=== PATIENT | female | born 1955 | race Caucasian/White ===

== ENCOUNTER 2024-09-24 09:29 | Emergency (ER) | payer OTHER ==
[~2024-09-24] VITALS: Ht 160 cm; Wt 89.9 kg
--- NOTE | 2024-09-24 11:08 | ED.PDOC ---
History of Present Illness HPI Comments 69-year-old female presents with a chief complaint of ruptured varicose vein x onset this morning. Patient states that she was shaving and gave herself an accidental puncture wound. Patient has a 1mm puncture wound to the left anterior tibial shaft of her left leg. Bleeding is not controlled at this time. Wont stop bleeding. Patient denies use of blood thinners. 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 Hx Family History Family History: Reviewed,noncontributory to illness Social History Smoker: Non-Smoker Alcohol: Denies ETOH Use Drugs: Denies Drug Use Lives In: Home All Other Systems: Reviewed and Negative ( PER HPI) Physical Exam General Appearance: No Apparent Distress, Normal HEENT: Normal ENT Inspection, Pharynx Normal, TMs Normal Neck: Full Range of Motion, Non-Tender, Normal, Normal Inspection Respiratory: Chest Non-Tender, Lungs Clear, No Accessory Muscle Use, No Respiratory Distress, Normal Breath Sounds Cardiovascular: No Edema, No JVD, No Murmur, No Gallop, Normal Peripheral Pulses, Regular Rate/Rhythm Breast Exam: Deferred Gastrointestinal: No Organomegaly, Non Tender, No Pulsatile Mass, Normal Bowel Sounds, Soft Genitalia: Deferred Pelvic: Deferred Rectal: Deferred Extremities: No calf tenderness, Normal capillary refill, Normal inspection, Normal range of motion, Non-tender, No pedal edema Musculoskeletal : Location: Left Extremity Location: Tibia (1mm PUNCTURE WOUND TO VARICOSE VEIN ON THE ANTERIOR TIBIAL SHAFT) Apperance: Normal Neurologic: Alert, gold blower II-XII nml as Tested, No Motor Deficits, Normal Affect, Normal Mood, No Sensory Deficits Cerebellar Function: Normal Reflexes: Normal Skin: Dry, Normal Color, Warm Lymphatic: No Adenopathy Was a procedure done? Was a procedure done?: No Differential Dx Considerations may include: ruptured venous varicosities, dvt, pad X-Ray, Labs, Meds, VS Vital Signs Date Time Temp Pulse Resp B/P (MAP) Pulse Ox O2 Delivery O2 Flow Rate FiO2 09/24/24 17:23 98.7 87 16 142/87 (105) 97 98.7 09/24/24 15:16 98.2 98 16 147/84 (105) 97 98.2 09/24/24 15:16 98 18 98 Room Air 09/24/24 09:34 98.1 108 20 155/79 (104) 95 98.1 Lab Test 09/24/24 13:18 Range/Units White Blood Count 7.2 4.4-10.8 10^3/uL Red Blood Count 4.26 4.0-5.20 10^6/uL Hemoglobin 12.8 12.2-16.2 g/dL Hematocrit 37.4 36.0-46.0 % Mean Corpuscular Volume 87.8 80.0-100.0 fL Mean Corpuscular Hemoglobin 29.9 28.0-32.0 pg Mean Corpuscular Hemoglobin Concent 34.1 32.0-36.0 g/dL Red Cell Distribution Width 13.2 11.8-14.3 % Platelet Count 226 140-450 10^3/uL Mean Platelet Volume 8.3 6.9-10.8 fL Neutrophils (%) (Auto) 68.4 37.0-80.0 % Lymphocytes (%) (Auto) 20.3 10.0-50.0 % Monocytes (%) (Auto) 8.9 0.0-12.0 % Eosinophils (%) (Auto) 1.8 0.0-7.0 % Basophils (%) (Auto) 0.6 0.0-2.0 % Neutrophils # (Auto) 4.9 1.6-8.6 10 ^3/uL Lymphocytes # (Auto) 1.5 0.4-5.4 10 ^3/uL Monocytes # (Auto) 0.6 0-1.3 10 ^3/uL Eosinophils # (Auto) 0.1 0-0.8 10 ^3/uL Basophils # (Auto) 0 0-0.2 10 ^3/uL Nucleated Red Blood Cells 0.0 % Prothrombin Time 10.8 9.3-11.8 sec Prothrombin Time INR 1.02 0.9-1.15 Sodium Level 144 136-145 mmol/L Potassium Level 3.7 3.5-5.1 mmol/L Chloride Level 107 98-107 mmol/L Carbon Dioxide Level 30 20-31 mmol/L Anion Gap 7 5-15 Blood Urea Nitrogen 12 9-23 mg/dL Creatinine 0.88 0.550-1.02 mg/dL Glomerular Filtration Rate Calc 70 >90 mL/min BUN/Creatinine Ratio 13.6 10.0-20.0 Serum Glucose 94 74-106 mg/dL Calcium Level 10.4 8.7-10.4 mg/dL Current Medications Medications (Trade) Dose Ordered Sig/Jourdan Route Start Time Stop Time Status Last Admin Acetaminophen/ Hydrocodone Bitart ([facility] 10/325MG Tab) 1 tab ONCE ONCE PO 09/24/24 15:30 09/24/24 15:31 DC 09/24/24 15:24 PATIENT: PAIGE PAULSON LACCT: [id number]: [id number] : 1955 LOC: ER ROOM / BED: / AGE / SEX: 69 / F ADM STATUS: REG ER SERVICE 110 ORDERING PHYSICIAN: FAITH OBRIEN DIRECTOR OF RADIOLOGY PROCEDURE(s): LLDVT - LT Lower DVT REASON: pain ORDER NUMBER(s): [id number], ACCESSION NUMBER(s): [id number] Left lower extremity venous duplex Clinical History: pain Comparison: None Technique: Duplex Doppler evaluation of the deep venous system of the left lower extremity from the common femoral vein to the popliteal vein including color Doppler and spectral/pulsed waveform analysis was performed. Findings: The common femoral vein demonstrates appropriate compressibility and waveform variability. There is compressibility/patency of the great saphenous vein at the proximal thigh. The femoral vein demonstrates appropriate compressibility and waveform variability. The deep femoral vein demonstrates appropriate compressibility and waveform variability. The popliteal vein demonstrates appropriate compressibility and waveform variability. There is normal compressibility at the tibioperoneal trunk. Impression: No left femoropopliteal venous thrombosis. PATIENT: KHURRAMPAIGE CHADWICK LACCT: [id number]: [id number] : 1955 LOC: ER ROOM / BED: / AGE / SEX: 69 / F ADM STATUS: REG ER SERVICE 1105 ORDERING PHYSICIAN: FAITH OBRIEN NP PROCEDURE(s): LLEAD - Lt Low Ext Art Duplex REASON: R/o PAD ORDER NUMBER(s): [id number], ACCESSION NUMBER(s): [id number] Left Lower Extremity Arterial Duplex Clinical History: Peripheral arterial disease Comparison: None Technique: Duplex Doppler evaluation including color Doppler and spectral/pulsed waveform analysis of the lower extremity arteries was performed. Findings: LEFT: Peak systolic velocities are as follows: NURSERY ATTENDANT 181 cm/s Deep femoral 66 cm/s SFA proximal 143 cm/s SFA mid-portion 114 cm/s SFA distal 86 cm/s Popliteal 101 cm/s Posterior tibial 93 cm/s Anterior tibial 63 cm/s Peroneal nv cm/s Dorsalis pedis 63 cm/s The waveforms are triphasic with diastolic flow. IMPRESSION: 20-49% stenosis of the left common femoral artery based on peak systolic velocity criteria. REFERENCE VALUES, [facility] vascular Imaging Lab Criteria: Peak systolic velocity ranges (in cm/sec) are as follows: <150 cm/s - <20 % stenosis 150-200 cm/s - 20-49% stenosis 200-300 cm/s - 50-75% stenosis >300 cm/s -> 75% stenosis ATED BY: JESUS SPIVEY MD DICTATED DATE/TIME: 09/24/24 120 SIGNED BY: JESUS SPIVEY MD SIGNED DATE/TIME: 09/24/24 1209 CC: X-Ray, Labs, Meds, VS Comment 69-year-old female presents with a chief complaint of ruptured varicose vein x onset this morning. Patient arrives alert and oriented, ABC's intact, afebrile, vital signs stable, saturating well in room air Lidocaine with 1% epi and applied a pressure dressing for 1 hour with no improvement. Ordered ultrasound to rule out DVT and peripheral arterial disease of the affected extremity. Results reviewed On re-evaluation patient had no improvement. Bleeding remains uncontrolled at this time. Therefore patient will require admission hemostasis is obtained. May benefit from surgical consultation. Ordered TXA. We will apply topically and we will rewrap the affected extremity. The patient's workup reveals that the patient needs further evaluation and/or treatment for the above medical conditions. Patient verbalized understanding of the above and is awaiting further evaluation by the admitting service. Consulted w/ Dr. Briseno who consulted with surgeon who stated patient is stable for discharge Time of 1ST Reevaluation: 11:27 Reevaluation 1ST: Unchanged Time of 2ND Reevaluation: 12:33 Reevaluation 2ND: Worsened Time of 3RD Reevaluation: 17:09 Patient Education/Counseling: Diagnosis, Treatment, Prognosis Family Education/Counseling: No Family Present SEPSIS Sepsis Screen Date sepsis recognized/suspect: Sep 24, 2024 Time Sepsis recognized/suspect: 933 Recent Procedure: No On Antibiotic Therapy: No Respiratory Rate >20: No Heart Rate >90: Yes (108) Temp<36 C (96.8 F) or >38.3 C: No SBP <90 or MAP <65 mmHG: No New Acute Mental Status Change: No Is the patient on CPAP, BIPAP,: No Physician Orders Lt Lower Dvt (09/24/24 11:05) Lt Low Ext Art Duplex (09/24/24 11:05) Vital Signs Date Time Temp Pulse Resp B/P (MAP) Pulse Ox O2 Delivery O2 Flow Rate FiO2 09/24/24 17:23 98.7 87 16 142/87 (105) 97 98.7 09/24/24 15:16 98.2 98 16 147/84 (105) 97 98.2 09/24/24 15:16 98 18 98 Room Air 09/24/24 09:34 98.1 108 20 155/79 (104) 95 98.1 Laboratory Tests Test 09/24/24 13:18 White Blood Count 7.2 10^3/uL (4.4-10.8) Departure 1 Departure Time of Disposition: 17:10 Impression: Primary Impression: Ruptured varicose vein Disposition: 01 HOME / SELF CARE / HOMELESS Condition: Fair Critical Care Note Critical Care Time?: No Stability Stability form required: No Heart Score Heart Score: Heart Score Response (Comments) Value History N/A 0 EKG N/A 0 Age N/A 0 Risk Factors N/A 0 Troponin N/A 0 Total 0 I personally scribed for FAITH OBRIEN NP ([email or web address]) on 09/24/24 at 11:08. Electronically submitted by Kal Crowder ([email or web address]). FAITH OBRIEN NP Sep 24, 2024 11:08
--- NOTE | 2024-09-24 12:01 | DVH ---
Left lower extremity venous duplex Clinical History: pain Comparison: None Technique: Duplex Doppler evaluation of the deep venous system of the left lower extremity from the common femor al vein to the popliteal vein including color Doppler and spectral/pulsed waveform analysis was perfo rmed. Findings: The common femoral vein demonstrates appropriate compressibility and waveform variability. There is compressibility/patency of the great saphenous vein at the proximal thigh. The femoral vein demonstrates appropriate compressibility and waveform variability. The deep femoral vein demonstrates appropriate compressibility and waveform variability. The popliteal vein demonstrates appropriate compressibility and waveform variability. There is normal compressibility at the tibioperoneal trunk. Impression: No left femoropopliteal venous thrombosis.
--- NOTE | 2024-09-24 12:12 | DVH ---
Left Lower Extremity Arterial Duplex Clinical History: Peripheral arterial disease Comparison: None Technique: Duplex Doppler evaluation including color Doppler and spectral/pulsed waveform analysis of the lower extremity arteries was performed. Findings: LEFT: Peak systolic velocities are as follows: WIG DRESSER 181 cm/s Deep femoral 66 cm/s SFA proximal 143 cm/s SFA mid-portion 114 cm/s SFA distal 86 cm/s Popliteal 101 cm/s Posterior tibial 93 cm/s Anterior tibial 63 cm/s Peroneal nv cm/s Dorsalis pedis 63 cm/s The waveforms are triphasic with diastolic flow. IMPRESSION: 20-49% stenosis of the left common femoral artery based on peak systolic velocity criteria. REFERENCE VALUES, [facility]) vascular Imaging Lab Criteria: Peak systolic velocity rang es (in cm/sec) are as follows: <150 cm/s - <20 % stenosis 150-200 cm/s - 20-49% stenosis 200-300 cm/s - 50-75% stenosis >300 cm/s -> 75% stenosis
[2024-09-24] MEDS: TRANEXAMIC ACID 1,000 MG in SODIUM CHL 0.9% 100 ML IV ONE (13:03)
[2024-09-24 13:34] LABS: Basophils # (auto) 0 10 ^3/uL (0-0.2); Basophils % (auto) 0.6 % (0.0-2.0); Eosinophils # (auto) 0.1 10 ^3/uL (0-0.8); Eosinophils % (auto) 1.8 % (0.0-7.0); Hematocrit 37.4 % (36.0-46.0); Hemoglobin 12.8 g/dL (12.2-16.2); Lymphocytes # (auto) 1.5 10 ^3/uL (0.4-5.4); Lymphocytes % (auto) 20.3 % (10.0-50.0); Mean Corpuscular Hemoglobin 29.9 pg (28.0-32.0); Mean Corpuscular Hgb Conc. 34.1 g/dL (32.0-36.0); Mean Corpuscular Volume 87.8 fL (80.0-100.0); Monocytes # (auto) 0.6 10 ^3/uL (0-1.3); Monocytes % (auto) 8.9 % (0.0-12.0); Neutrophils # (auto) 4.9 10 ^3/uL (1.6-8.6); Neutrophils % (auto) 68.4 % (37.0-80.0); Platelet Count (auto) 226 10^3/uL (140-450); Red Blood Cells 4.26 10^6/uL (4.0-5.20); Red Cell Distribution Width 13.2 % (11.8-14.3); White Blood Cell 7.2 10^3/uL (4.4-10.8)
[2024-09-24 13:43] LABS: Potassium 3.7 mmol/L (3.5-5.1); Sodium 144 mmol/L (136-145)
[2024-09-24 13:44] LABS: Anion Gap 7 (5-15); Carbon Dioxide 30 mmol/L (20-31)
[2024-09-24 13:48] LABS: INR 1.02 (0.9-1.15); Prothrombin Time 10.8 sec (9.3-11.8)
[2024-09-24 13:49] LABS: BUN/Creatinine Ratio 13.6 (10.0-20.0); Blood Urea Nitrogen 12 mg/dL (9-23); Glucose 94 mg/dL (74-106)
[2024-09-24 13:52] LABS: Calcium 10.4 mg/dL (8.7-10.4); Chloride 107 mmol/L (98-107)
[2024-09-24] MEDS: HYDROcodone-ACET 10/325MG TAB PO ONE (15:24)
[2024-09-24 17:23] VITALS: BP 142/87; PULSE 87; RESP 16; TEMP 98.7; O2SAT 97
--- NOTE | 2024-09-24 17:23 | DVHINCON2 ---
Date Seen: Sep 24, 2024 Referring Physician ER physician. Reason for Consultation Left lower extremity varicose has been/active bleeding from puncture wound. History of Present Illness 69-year-old female with no significant past medical history accept previous history of abdominal hernia surgery presented to the hospital with a left cough wound. Patient has a known varicose vein she was shaving her leg on the left lower extremity eventually gave are recurrent. Patient came with oozing from the varicose veins. Initially plan was to admit and then call vascular surgeon. Case discussed in detail with Dr. Ashby who recommended stretching of the wound and send the patient home with close follow up as an outpatient with the [facility] with a in one week. Patient agrees to current plan of care. Past Surgical History Abdominal hernia surgeries. Allergies: Coded Allergies: Amoxicillin (Verified Allergy, Unknown, 09/24/24) Review of Systems Twelve review of system were negative except mentioned above. 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 Labs/Diagnostic Data Labs Test 09/24/24 13:18 Range/Units White Blood Count 7.2 4.4-10.8 10^3/uL Red Blood Count 4.26 4.0-5.20 10^6/uL Hemoglobin 12.8 12.2-16.2 g/dL Hematocrit 37.4 36.0-46.0 % Mean Corpuscular Volume 87.8 80.0-100.0 fL Mean Corpuscular Hemoglobin 29.9 28.0-32.0 pg Mean Corpuscular Hemoglobin Concent 34.1 32.0-36.0 g/dL Red Cell Distribution Width 13.2 11.8-14.3 % Platelet Count 226 140-450 10^3/uL Mean Platelet Volume 8.3 6.9-10.8 fL Neutrophils (%) (Auto) 68.4 37.0-80.0 % Lymphocytes (%) (Auto) 20.3 10.0-50.0 % Monocytes (%) (Auto) 8.9 0.0-12.0 % Eosinophils (%) (Auto) 1.8 0.0-7.0 % Basophils (%) (Auto) 0.6 0.0-2.0 % Neutrophils # (Auto) 4.9 1.6-8.6 10 ^3/uL Lymphocytes # (Auto) 1.5 0.4-5.4 10 ^3/uL Monocytes # (Auto) 0.6 0-1.3 10 ^3/uL Eosinophils # (Auto) 0.1 0-0.8 10 ^3/uL Basophils # (Auto) 0 0-0.2 10 ^3/uL Nucleated Red Blood Cells 0.0 % Prothrombin Time 10.8 9.3-11.8 sec Prothrombin Time INR 1.02 0.9-1.15 Sodium Level 144 136-145 mmol/L Potassium Level 3.7 3.5-5.1 mmol/L Chloride Level 107 98-107 mmol/L Carbon Dioxide Level 30 20-31 mmol/L Anion Gap 7 5-15 Blood Urea Nitrogen 12 9-23 mg/dL Creatinine 0.88 0.550-1.02 mg/dL Glomerular Filtration Rate Calc 70 >90 mL/min BUN/Creatinine Ratio 13.6 10.0-20.0 Serum Glucose 94 74-106 mg/dL Calcium Level 10.4 8.7-10.4 mg/dL Assessment 69-year-old female with a no significant past medical history besides abdominal hernia surgery presented to the hospital with bleeding from the cough found to have 1. Active bleeding from the left cough wound 2. Ruptured varicose vein status post hemostatic spray with antiseptic dressing -patient can be safely discharged with close follow up as an outpatient with Dr. Ashby as I discussed the case with him. Patient understand verbalized understanding and agreeable to plan. Problems(with codes): (1) Ruptured varicose vein Plan discussed with: Patient, Other (ER provider Pavan.) Date of Service: Sep 24, 2024 Billing Provider: MICHELLE GUILLORY MD Common Visit Codes: NOT BILLABLE MICHELLE GUILLORY MD Sep 24, 2024 17:23
== END 2024-09-24 17:32 | disposition home or self-care (01) ==
LOC: ER 09:29
DX: S81.832A Puncture wound without foreign body, left lower leg, initial encounter (principal); I83.892 Varicose veins of left lower extremity with other complications; Z88.0 Allergy status to penicillin; X58.XXXA Exposure to other specified factors, initial encounter; Y93.89 Activity, other specified; Y92.89 Other specified places as the place of occurrence of the external cause; Y99.8 Other external cause status
CPT/HCPCS: 36415; 80048; 85025; 85610; 93926; 93971

== ENCOUNTER 2025-03-16 04:03 | Inpatient (IN) | payer OTHER ==
[~2025-03-16] VITALS: Ht 160 cm; Wt 91.0 kg
--- NOTE | 2025-03-16 04:36 | ED.PDOC ---
Musculoskeletal HPI Comments 69-year-old female who came to ER for bilateral leg swelling. Patient states about 3 months ago she had the procedure to repair leaking venous valves at her left lower leg. The past few weeks however noted swelling and pain on both lower legs again, more painful in the right leg Chief Complaint: Extremity Swelling Time Seen by MD: 04:36 Primary Care Provider: LUZ MARIA Reviewed Notes: Nurses Notes Allergies: Coded Allergies: Amoxicillin (Verified Allergy, Unknown, 09/24/24) Penicillins (Verified Allergy, Unknown, 03/16/25) Home Meds Active Scripts Elastic Bandages & Supports (Futuro Sheer Support Hose) Sheer Mis, UNITS XX DAILY, #10 Prov:RYAN BAEZ MD 03/16/25 Elastic Bandages & Supports (ANTI-EMBOLISM STOCKINGS 1) Jodi Med Mis, UNIT XX DAILY, #1 Prov:RYAN BAEZ MD 03/16/25 Information Source: Patient Mode of Arrival: Ambulatory Location: Bilateral Extremity Location: Leg Past Medical History PAST MEDICAL HISTORY: Denies Past Medical History (Other): Leaking venous valves Surgical History: Denies all surgeries 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 Family History Family History: Reviewed,noncontributory to illness Social History Smoker: Non-Smoker Alcohol: Denies ETOH Use Drugs: Denies Drug Use Lives In: Home Constitutional: denies: chills, diaphoresis, fatigue, fever, malaise, sweats, weakness, others EENTM: denies: blurred vision, double vision, ear bleeding, ear discharge, ear drainage, ear pain, ear ringing, eye pain, eye redness, hearing loss, mouth pain, mouth swelling, nasal discharge, nose bleeding, nose congestion, nose pain, photophobia, tearing, throat pain, throat swelling, voice changes, others Respiratory: denies: cough, hemoptysis, orthopnea, SOB at rest, shortness of breath, SOB with excertion, stridor, wheezing, others Cardiovascular: denies: chest pain, dizzy spells, diaphoresis, Dyspnea on exertion, edema, irregular heart beat, left arm pain, lightheadedness, palpitations, PND, syncope, others Gastrointestinal: denies: abdomen distended, abdominal pain, blood streaked bowels, constipated, diarrhea, dysphagia, difficulty swallowing, hematemesis, melena, nausea, poor appetite, poor fluid intake, rectal bleeding, rectal pain, vomiting, others Genitourinary: denies: abnormal vagina bleeding, burning, dyspareunia, dysuria, flank pain, frequency, hematuria, incontinence, pain, , vagina discharge, urgency, others Neurological: denies: dizziness, fainting, headache, left sided numbness, left sided weakness, numbness, paresthesia, pre-existing deficit, right sided numbness, right sided weakness, seizure, speech problems, tingling, tremors, weakness, others Musculoskeletal: reports: others (Bilateral lower extremity swelling); denies: back pain, gout, joint pain, joint swelling, muscle pain, muscle stiffness, neck pain Integumetry: denies: bruises, change in color, change in hair/nails, dryness, laceration, lesions, lumps, rash, wounds, others Allergic/Immunocompromised: denies: Difficulty Healing, Frequent Infections, Hives, Itching, others Hematologic/Lymphatic: denies: anemia, blood clots, easy bleeding, easy bruising, swollen glands, others Endocrine: denies: excessive hunger, excessive sweating, excessive thirst, excessive urination, flushing, intolerance to cold, intolerance to heat, unexplained weight gain, unexplained weight loss, others Psychiatric: denies: anxiety, bipolar disorder, depression, hopeless, panic disorder, schizophrenia, sleepless, suicidal, others Physical Exam General Appearance: No Apparent Distress, Normal HEENT: Normal ENT Inspection, Pharynx Normal, TMs Normal Neck: Full Range of Motion, Non-Tender, Normal, Normal Inspection Respiratory: Chest Non-Tender, Lungs Clear, No Accessory Muscle Use, No Respiratory Distress, Normal Breath Sounds Cardiovascular: No Edema, No JVD, No Murmur, No Gallop, Normal Peripheral Pulses, Regular Rate/Rhythm Breast Exam: Deferred Gastrointestinal: No Organomegaly, Non Tender, No Pulsatile Mass, Normal Bowel Sounds, Soft Genitalia: Deferred Pelvic: Deferred Rectal: Deferred Extremities: No calf tenderness, Normal capillary refill, Normal range of motion, Non-tender, Pedal edema Musculoskeletal : Apperance: Normal Neurologic: Alert, e commerce solution architect II-XII nml as Tested, No Motor Deficits, Normal Affect, Normal Mood, No Sensory Deficits Cerebellar Function: Normal Reflexes: Normal Skin: Dry, Normal Color, Warm Lymphatic: No Adenopathy Was a procedure done? Was a procedure done?: No Differential Diagnosis EXT Differential Diagnosis: Cellulitis, CHF, Deep Vein Thrombosis X-Ray, Labs, Meds, VS Vital Signs Date Time Temp Pulse Resp B/P (MAP) Pulse Ox O2 Delivery O2 Flow Rate FiO2 03/16/25 07:45 98.4 80 19 171/81 (111) 97 98.4 03/16/25 07:45 80 19 97 Room Air 03/16/25 04:57 98.7 80 18 136/68 (90) 95 98.7 03/16/25 04:06 98.3 79 16 126/91 95 98.3 Lab Test 03/16/25 04:37 Range/Units White Blood Count 5.7 4.4-10.8 10^3/uL Red Blood Count 4.20 4.0-5.20 10^6/uL Hemoglobin 13.1 12.2-16.2 g/dL Hematocrit 38.9 36.0-46.0 % Mean Corpuscular Volume 92.7 80.0-100.0 fL Mean Corpuscular Hemoglobin 31.1 28.0-32.0 pg Mean Corpuscular Hemoglobin Concent 33.6 32.0-36.0 g/dL Red Cell Distribution Width 13.9 11.8-14.3 % Platelet Count 261 140-450 10^3/uL Mean Platelet Volume 8.1 6.9-10.8 fL Neutrophils (%) (Auto) 54.8 37.0-80.0 % Lymphocytes (%) (Auto) 28.4 10.0-50.0 % Monocytes (%) (Auto) 11.5 0.0-12.0 % Eosinophils (%) (Auto) 3.9 0.0-7.0 % Basophils (%) (Auto) 1.4 0.0-2.0 % Neutrophils # (Auto) 3.1 1.6-8.6 10 ^3/uL Lymphocytes # (Auto) 1.6 0.4-5.4 10 ^3/uL Monocytes # (Auto) 0.7 0-1.3 10 ^3/uL Eosinophils # (Auto) 0.2 0-0.8 10 ^3/uL Basophils # (Auto) 0.1 0-0.2 10 ^3/uL Nucleated Red Blood Cells 0.0 % Sodium Level 143 136-145 mmol/L Potassium Level 3.8 3.5-5.1 mmol/L Chloride Level 107 98-107 mmol/L Carbon Dioxide Level 26 20-31 mmol/L Anion Gap 10 5-15 Blood Urea Nitrogen 12 9-23 mg/dL Creatinine 0.73 0.550-1.02 mg/dL Glomerular Filtration Rate Calc 88 >90 mL/min BUN/Creatinine Ratio 16.4 10.0-20.0 Serum Glucose 95 74-106 mg/dL Calcium Level 9.7 8.7-10.4 mg/dL Total Bilirubin 1.1 H 0.2-1.0 mg/dL Aspartate Amino Transferase (AST) 24 13-40 U/L Alanine Aminotransferase (ALT) 23 7-40 U/L Alkaline Phosphatase 100 46-116 U/L Troponin I High Sensitivity < 3 L </=34 ng/L B-Type Natriuretic Peptide 105.61 0-100 pg/mL Total Protein 6.6 5.7-8.2 g/dL Albumin 4.2 3.2-4.8 g/dL Time of 1ST Reevaluation: 04:30 Reevaluation 1ST: Unchanged Patient Education/Counseling: Diagnosis, Treatment Family Education/Counseling: Diagnosis, Treatment Departure 1 Departure Time of Disposition: 08:24 (Patient with a worsening lower extremity edema admitted shortness of breath. Patient's chest x-ray is pulmonary vascular congestion. We will admit patient for suspected heart failure) Impression: Primary Impression: Suspected congestive heart failure Additional Impressions: Shortness of breath Lower extremity edema Disposition: 09 ADMITTED INPATIENT Admit to: Tele Condition: Guarded e-Prescriptions Elastic Bandages & Supports (Futuro Sheer Support Hose) Sheer Mis UNITS XX DAILY, #10 Prov: RYAN BAEZ MD 03/16/25 Elastic Bandages & Supports (ANTI-EMBOLISM STOCKINGS 1) Jodi Med Mis UNIT XX DAILY, #1 Prov: RYAN BAEZ MD 03/16/25 Critical Care Note Critical Care Time?: No Stability Stability form required: No Heart Score Heart Score: Heart Score Response (Comments) Value History N/A 0 EKG N/A 0 Age N/A 0 Risk Factors N/A 0 Troponin N/A 0 Total 0 I personally scribed for RYAN BAEZ MD ([email or web address]) on 03/16/25 at 04:36. Electronically submitted by David Berry ([facility]). RYAN BAEZ MD Mar 16, 2025 04:36 SEEMA DIANA MD Mar 16, 2025 08:24
[2025-03-16 04:49] LABS: Hematocrit 38.9 % (36.0-46.0); Hemoglobin 13.1 g/dL (12.2-16.2); Mean Corpuscular Hemoglobin 31.1 pg (28.0-32.0); Mean Corpuscular Volume 92.7 fL (80.0-100.0); Nucleated Red Blood Cells % 0.0 %
[2025-03-16 05:01] LABS: Alanine Aminotransferase 23 U/L (7-40); Albumin 4.2 g/dL (3.2-4.8); Alkaline Phosphatase 100 U/L (46-116); Anion Gap 10 (5-15); BUN/Creatinine Ratio 16.4 (10.0-20.0); Blood Urea Nitrogen 12 mg/dL (9-23); Calcium 9.7 mg/dL (8.7-10.4); Carbon Dioxide 26 mmol/L (20-31); Glucose 95 mg/dL (74-106); Potassium 3.8 mmol/L (3.5-5.1); Sodium 143 mmol/L (136-145); Total Protein 6.6 g/dL (5.7-8.2)
[2025-03-16 05:02] LABS: Bilirubin, Total 1.1 mg/dL (0.2-1.0)
[2025-03-16 05:03] LABS: Chloride 107 mmol/L (98-107)
[2025-03-16] MEDS ORDERED: ELAS-110 XX (05:21)
[2025-03-16] MEDS ORDERED: [UNRECOGNIZED DRUG - CODE] XX (05:21)
--- NOTE | 2025-03-16 08:27 | DVH ---
CLINICAL HISTORY: Bilateral lower extremity pain and swelling. COMPARISON: VAS VENOUS REFLUX INSUFFICIENCY BILAT on DOS: 10/16/24, US LT LOW EXT ART DUPLEX on DOS: 09/24/24, US LT LOWER DVT on DOS: 09/24/24 TECHNIQUE: Bilateral lower extremity venous duplex exam was performed. Grayscale, color flow, and spectral waveform analysis was performed. The deep veins of the lower extremity were evaluated for compression, phasic flow, and augmentation. Color flow and spectral waveform analysis were performed. FINDINGS: This examination demonstrates normal compression, augmentation, and phasic flow of both lower extremities. No evidence for thrombus within the common femoral, femoral, and popliteal veins. The calf veins were not evaluated. IMPRESSION: There is no evidence for DVT in either lower extremity from the level of the common femoral through the popliteal veins.
--- NOTE | 2025-03-16 08:38 | DVH ---
CHEST RADIOGRAPH Indication: sob Technique: Single frontal view of the chest was obtained COMPARISON: None FINDINGS: Lines and Tubes: None Lungs: Increased interstitial prominence. This may represent pulmonary vascular congestion and/or viral pneumonia. Pleura: No effusion. No pneumothorax. Cardiomediastinal contours: Unremarkable Bones: Unremarkable IMPRESSION: Increased interstitial prominence. This may represent pulmonary vascular congestion and/or viral pneumonia.
[2025-03-16] MEDS: FUROSEMIDE 40 MG/4 ML VIAL IV ONE (08:57)
[2025-03-16] MEDS ORDERED: NITROGLYCERIN 0.4 MG SL TAB SL PRN (11:00)
[2025-03-16] MEDS ORDERED: MORPHINE SULFATE 4 MG/ML SYR/VIAL IV PRN (11:00)
[2025-03-16] MEDS ORDERED: HYDROcodone-ACET 5/325MG TAB PO PRN (11:00)
[2025-03-16] MEDS ORDERED: ONDANSETRON HCL 4 MG/2 ML VIAL IV PRN (11:00)
[2025-03-16] MEDS: LABETALOL HCL 20 MG/4 ML VL IV ONE (11:03)
--- NOTE | 2025-03-16 13:59 | DVHHP2 ---
History of Present Illness Reason for Visit: Bilateral lower extremity swelling and discomfort History of Present Illness 69-year-old female who came to ER for bilateral leg swelling. Patient states a bout 3 months ago she had the procedure to repair leaking venous valves at her left lower leg. The past few weeks however noted swelling and pain on both lower legs again, more painful in the right leg. Pain appears to be get worse with walking. Cardiovascular: HTN Past Medical History Lower extremity venous insufficiency, hypertension Past Surgical History: None Family History: Hypertension Smoke: No ALCOHOL: rare Lives: with Family Review of Systems Review of Systems No fevers chills or sweats. No headache dizziness or lightheaded. No chest pain or shortness for breath. Other review of systems reviewed normal. Allergies: Coded Allergies: Amoxicillin (Verified Allergy, Unknown, 09/24/24) Penicillins (Verified Allergy, Unknown, 03/16/25) Medications Current Medications Medications Dose Ordered Sig/Jourdan Route Start Time Stop Time Status Last Admin Dose Admin Nitroglycerin 0.4 mg Q5MINP PRN SL 03/16/25 11:00 Morphine Sulfate 2 mg Q30M PRN IV 03/16/25 11:00 Furosemide 40 mg BIDD IV 03/16/25 18:00 Acetaminophen/ Hydrocodone Bitart 1 tab Q4HPRN PRN PO 03/16/25 11:00 Ondansetron HCl 4 mg Q4HPRN PRN IV 03/16/25 11:00 Enoxaparin Sodium 40 mg DAILY SC 03/17/25 10:00 Exam Vital Signs Vital Signs Date Time Temp Pulse Resp B/P (MAP) Pulse Ox O2 Delivery O2 Flow Rate FiO2 03/16/25 11:45 79 128/83 03/16/25 11:28 98.2 18 98 98.2 03/16/25 07:45 Room Air Exam Elderly female comfortable alert awake oriented x3. HEENT neck supple no JVD. Heart regular rate and rhythm S1-S2. Lungs fair air movement without rales wheezes. Abdomen soft nontender positive bowel sounds. Extremities positive edema in the lower extremities. Chronic venous stasis with a dermatitis changes noted. Positive distal pedal pulses noted. Labs/Xrays Labs Test 03/16/25 04:37 Range/Units White Blood Count 5.7 4.4-10.8 10^3/uL Red Blood Count 4.20 4.0-5.20 10^6/uL Hemoglobin 13.1 12.2-16.2 g/dL Hematocrit 38.9 36.0-46.0 % Mean Corpuscular Volume 92.7 80.0-100.0 fL Mean Corpuscular Hemoglobin 31.1 28.0-32.0 pg Mean Corpuscular Hemoglobin Concent 33.6 32.0-36.0 g/dL Red Cell Distribution Width 13.9 11.8-14.3 % Platelet Count 261 140-450 10^3/uL Mean Platelet Volume 8.1 6.9-10.8 fL Neutrophils (%) (Auto) 54.8 37.0-80.0 % Lymphocytes (%) (Auto) 28.4 10.0-50.0 % Monocytes (%) (Auto) 11.5 0.0-12.0 % Eosinophils (%) (Auto) 3.9 0.0-7.0 % Basophils (%) (Auto) 1.4 0.0-2.0 % Neutrophils # (Auto) 3.1 1.6-8.6 10 ^3/uL Lymphocytes # (Auto) 1.6 0.4-5.4 10 ^3/uL Monocytes # (Auto) 0.7 0-1.3 10 ^3/uL Eosinophils # (Auto) 0.2 0-0.8 10 ^3/uL Basophils # (Auto) 0.1 0-0.2 10 ^3/uL Nucleated Red Blood Cells 0.0 % Sodium Level 143 136-145 mmol/L Potassium Level 3.8 3.5-5.1 mmol/L Chloride Level 107 98-107 mmol/L Carbon Dioxide Level 26 20-31 mmol/L Anion Gap 10 5-15 Blood Urea Nitrogen 12 9-23 mg/dL Creatinine 0.73 0.550-1.02 mg/dL Glomerular Filtration Rate Calc 88 >90 mL/min BUN/Creatinine Ratio 16.4 10.0-20.0 Serum Glucose 95 74-106 mg/dL Calcium Level 9.7 8.7-10.4 mg/dL Total Bilirubin 1.1 H 0.2-1.0 mg/dL Aspartate Amino Transferase (AST) 24 13-40 U/L Alanine Aminotransferase (ALT) 23 7-40 U/L Alkaline Phosphatase 100 46-116 U/L Troponin I High Sensitivity < 3 L </=34 ng/L B-Type Natriuretic Peptide 105.61 0-100 pg/mL Total Protein 6.6 5.7-8.2 g/dL Albumin 4.2 3.2-4.8 g/dL SEPSIS Sepsis Screen Date sepsis recognized/suspect: Mar 16, 2025 Time Sepsis recognized/suspect: 445 Recent Procedure: Yes On Antibiotic Therapy: No Respiratory Rate >20: No Heart Rate >90: No Temp<36 C (96.8 F) or >38.3 C: No SBP <90 or MAP <65 mmHG: No New Acute Mental Status Change: No Is the patient on CPAP, BIPAP,: No Physician Orders Chest Portable (03/16/25 07:11) Admit (03/16/25 10:49) Cardiac Diet-2gna,Lofat,Lochol (03/16/25 Lunch) Echo 2d Mode Cardiac Dop (03/16/25 10:49) Nitroglycerin Sublingual (Ntrostat Subli (03/16/25 11:00) Stat Ekg For Chest Pain (03/16/25 10:49) Notify Md Of Changes From Base (03/16/25 10:49) Clinical Psychology Teacher For 24 Hours (03/16/25 10:49) Emergency Dysrhythmia Protocol (03/16/25 10:49) Rhythm Strips Once Every Shift (03/16/25 10:49) Oxygen By Nasal Cannula (03/16/25 10:49) Bilat Low Ext Art Duplex (03/16/25 10:49) Furosemide Injection (Lasix Injection) (03/16/25 18:00) Hydrocodone-Acet 5/325mg Tab ([place] 5/32 (03/16/25 11:00) Ondansetron Hcl (Zofran) (03/16/25 11:00) Enoxaparin Sodium (Lovenox) (03/17/25 10:00) Basic Metabolic Panel (03/17/25 04:00) Marino Stockings (03/16/25 10:49) Morphine Sulfate Injection (03/16/25 11:00) Aspirin Enteric Coated Tablet (Ecotrin E (03/17/25 10:00) Aspirin Enteric Coated Tablet (Ecotrin E (03/16/25 14:00) Vital Signs Date Time Temp Pulse Resp B/P (MAP) Pulse Ox O2 Delivery O2 Flow Rate FiO2 03/16/25 11:45 79 128/83 03/16/25 11:28 98.2 79 18 128/73 (91) 98 98.2 03/16/25 11:03 78 158/101 03/16/25 10:48 97.9 78 18 156/101 (119) 97 97.9 03/16/25 08:57 144/78 03/16/25 08:52 98.9 64 18 144/78 (100) 98 98.9 03/16/25 07:45 98.4 80 19 171/81 (111) 97 98.4 03/16/25 07:45 80 19 97 Room Air Laboratory Tests Test 03/16/25 04:37 White Blood Count 5.7 10^3/uL (4.4-10.8) Medications Medications Dose Ordered Sig/Jourdan Route Start Time Stop Time Status Last Admin Dose Admin Furosemide 20 mg ONCE ONCE IV 03/16/25 08:30 03/16/25 08:34 DC 03/16/25 08:57 20 MG Labetalol HCl 20 mg ONCE ONCE IV 03/16/25 11:00 03/16/25 11:01 DC 03/16/25 11:03 20 MG Assessment/Plan Assessment/Plan Telemetry observation overnight. Her symptoms could be related to venous insufficiency given her history. IV diuretics. Control blood pressure with the lisinopril. Marino hoses to both legs. Arterial Doppler studies. Pain control. Monitor overnight. If she remains stable consider discharge home tomorrow. Plan discussed with: Other My Orders Orders - JOYCELYN TOWNSEND MD Procedure Category Date Status Time Admit ADMIT 03/16/25 Transmitted 10:49 Cardiac DIET 03/16/25 Transmitted Diet-2gna,Lofat,Lochol Lunch Echo 2d Mode Cardiac US 03/16/25 Logged DOP 10:49 Nitroglycerin PHA 03/16/25 In Process Sublingual (Ntrostat 11:00 Stat Ekg For Chest ALLEGRA 03/16/25 In Process Pain 10:49 Notify Of Changes ALLEGRA 03/16/25 In Process From Base 10:49 Clinical Psychology Teacher For ALLEGRA 03/16/25 In Process 24 Hours 10:49 Emergency Dysrhythmia ALLEGRA 03/16/25 In Process Protocol 10:49 Rhythm Strips Once ALLEGRA 03/16/25 In Process Every Shift 10:49 Oxygen By Nasal RT 03/16/25 Transmitted Cannula 10:49 Bilat Low Ext Art US 03/16/25 Taken Duplex 10:49 Furosemide Injection PHA 03/16/25 In Process (Lasix Injection) 18:00 Hydrocodone-Acet PHA 03/16/25 In Process 5/325mg Tab ([place] 11:00 Ondansetron Hcl PHA 03/16/25 In Process (Zofran) 11:00 Enoxaparin Sodium PHA 03/17/25 In Process (Lovenox) 10:00 Basic Metabolic Panel LAB 03/17/25 Verified 04:00 Marino Stockings ALLEGRA 03/16/25 In Process 10:49 Morphine Sulfate PHA 03/16/25 In Process Injection 11:00 Aspirin Enteric PHA 03/17/25 Verified Coated Tablet 10:00 Aspirin Enteric PHA 03/16/25 Verified Coated Tablet 14:00 Problem List: (1) Venous stasis dermatitis of both lower extremities (2) Lower extremity edema JOYCELYN TOWNSEND MD Mar 16, 2025 13:59
--- NOTE | 2025-03-16 14:19 | DVH ---
CLINICAL HISTORY: pain and swelling TECHNIQUE: Bilateral lower extremity arterial duplex exam was performed. Grayscale, color Doppler, and spectral waveform analysis was performed. COMPARISON: US BILAT LOWER DVT on DOS: 03/16/25, VAS VENOUS REFLUX INSUFFICIENCY BILAT on DOS: 10/16/24, US LT LOW EXT ART DUPLEX on DOS: 09/24/24 FINDINGS: Right Lower Extremity: Scattered mild atherosclerotic plaque. No focal stenosis or occlusion visualized. There are normal triphasic waveforms throughout the right lower extremity. Left Lower Extremity: Scattered mild atherosclerotic plaque. No focal stenosis or occlusion visualized. normal triphasic waveforms throughout the left lower extremity. EXAMINATION DATA: RIGHT PSV (cm/sec) OFFENDER JOB RETENTION SPECIALIST 166 Profunda 87 SFA Prox 98 SFA Mid 91 SFA Dist 94 POP A 78 GENERAL MAINTENANCE MECHANIC 70 DPA 62 DEB 63 LEFT PSV (cm/sec) OFFENDER JOB RETENTION SPECIALIST 156 Profunda 91 SFA Prox 140 SFA Mid 84 SFA Dist 68 POP A 82 GENERAL MAINTENANCE MECHANIC 91 DPA 70 DEB 79 IMPRESSION: 1. Mildly elevated peak systolic velocities in the common femoral arteries bilaterally, may be due to the patient's reported history of hypertension rather than due to stenosis. 2. Normal triphasic waveforms in both lower extremities with no evidence of significant arterial stenosis or occlusion.
[2025-03-16] MEDS: ASPirin-EC 81 mg tab PO ONE (14:59)
--- NOTE | 2025-03-16 18:04 | DVHSR ---
APPROVED REPORT EXAM: Two-dimensional and M-mode echocardiogram with Doppler and color Doppler. Blood Pressure: 156/101 mmHg INDICATION CHF? RISK FACTORS Obesity: Height: 5'3", Weight: 213 DIMENSIONS LVDd 4.3 (3.8-5.7cm) LA (2D) 3.4 (1.9-4.0cm) Aortic Root 3.3 (2.0-3.7cm) LVDs 2.9 (2.5-4.0cm) LA (MM) (1.9-4.0cm) Aortic Cusp Exc 1.4 (1.5-2.0cm) EF (%) 60.0 (55-70%) Rt. Atrium 3.6 (1.9-4.0cm) Asc. Aorta cm IVSd 0.8 (0.7-1.1cm) RV (D) (1.8-2.4cm) PWd 0.9 (0.7-1.1cm) Mitral Valve Mitral Mitral Stenosis E wave 0.99m/s MV Mean GR. mmHg A wave 1.16m/s MV Peak GR. mmHg E/A ratio 0.9 2D MVA cm2 DECEL Time 183ms PRESS 1/2 Time ms Aortic Valve Aortic Valve Aortic Stenosis V1 1.14m/s AO Mean GR. 4mmHg V2 1.51m/s AO Peak GR. 9mmHg LVOT Diameter 1.8 (1.8-2.4cm) Doppler JAYLIN 1.92cm2 Pulmonic Valve V2 1.03m/s Tricuspid Valve TR Velocity 3.01m/s RVSP 39mmHg Other Information Quality : Limited Rhythm : Technically limited study due to body habitus, patient laying flat. Conclusion LV EF IS 65% AND IS NORMAL MILD LVH AND MILD LV DIASTOLIC DYSFUNCTION NORMAL VALVES NO EFFUSION NORMAL RV FUNCTION MILD PULMONARY HYPERTENSION RVSP IS 39 MM OF HG AND IS BORDERLINE HIGH
[2025-03-16] MEDS: FUROSEMIDE 40 MG/4 ML VIAL IV SCH (18:39)
[2025-03-16] MEDS: LISINOPRIL 5 MG TAB PO SCH (18:40)
[2025-03-16 23:06] VITALS: PULSE 71; RESP 17; TEMP 98; O2SAT 96; O2SAT 98
[2025-03-17 06:12] LABS: Chloride 103 mmol/L (98-107); Potassium 3.9 mmol/L (3.5-5.1); Sodium 144 mmol/L (136-145)
[2025-03-17 06:13] LABS: Anion Gap 11 (5-15); Calcium 9.5 mg/dL (8.7-10.4); Carbon Dioxide 30 mmol/L (20-31)
[2025-03-17 06:18] LABS: BUN/Creatinine Ratio 15.5 (10.0-20.0); Blood Urea Nitrogen 13 mg/dL (9-23); Glucose 91 mg/dL (74-106)
[2025-03-17] MEDS ORDERED: ATEN-60 PO (06:49)
[2025-03-17] MEDS ORDERED: LEVO100T8 PO (06:49)
[2025-03-17] MEDS ORDERED: OXYC-998 PO (06:49)
[2025-03-17 08:00] VITALS: PULSE 96
[2025-03-17 09:00] VITALS: BP 138/76; PULSE 90; RESP 17; TEMP 98; O2SAT 96
[2025-03-17] MEDS: ENOXAPARIN SOD 40 MG/0.4 ML SYRINGE SC SCH (09:54)
[2025-03-17] MEDS: ASPirin-EC 81 mg tab PO SCH (09:54)
[2025-03-17 13:00] VITALS: BP 120/58; PULSE 71; TEMP 98.2; O2SAT 93
[2025-03-17] MEDS ORDERED: SPIR25TA PO (13:33)
--- NOTE | 2025-03-17 13:36 | DVHDS2 ---
Discharge Summary Date of Admission Mar 16, 2025 at 10:49 Date of Discharge: Mar 17, 2025 Labs/Diagnostic Data: Laboratory Results Test 03/17/25 04:38 03/16/25 04:37 Sodium Level 144 mmol/L (136-145) Potassium Level 3.9 mmol/L (3.5-5.1) Chloride Level 103 mmol/L (98-107) Carbon Dioxide Level 30 mmol/L (20-31) Anion Gap 11 (5-15) Blood Urea Nitrogen 13 mg/dL (9-23) Creatinine 0.84 mg/dL (0.550-1.02) Glomerular Filtration Rate Calc 74 mL/min (>90) BUN/Creatinine Ratio 15.5 (10.0-20.0) Serum Glucose 91 mg/dL (74-106) Calcium Level 9.5 mg/dL (8.7-10.4) White Blood Count 5.7 10^3/uL (4.4-10.8) Red Blood Count 4.20 10^6/uL (4.0-5.20) Hemoglobin 13.1 g/dL (12.2-16.2) Hematocrit 38.9 % (36.0-46.0) Mean Corpuscular Volume 92.7 fL (80.0-100.0) Mean Corpuscular Hemoglobin 31.1 pg (28.0-32.0) Mean Corpuscular Hemoglobin Concent 33.6 g/dL (32.0-36.0) Red Cell Distribution Width 13.9 % (11.8-14.3) Platelet Count 261 10^3/uL (140-450) Mean Platelet Volume 8.1 fL (6.9-10.8) Neutrophils (%) (Auto) 54.8 % (37.0-80.0) Lymphocytes (%) (Auto) 28.4 % (10.0-50.0) Monocytes (%) (Auto) 11.5 % (0.0-12.0) Eosinophils (%) (Auto) 3.9 % (0.0-7.0) Basophils (%) (Auto) 1.4 % (0.0-2.0) Neutrophils # (Auto) 3.1 10 ^3/uL (1.6-8.6) Lymphocytes # (Auto) 1.6 10 ^3/uL (0.4-5.4) Monocytes # (Auto) 0.7 10 ^3/uL (0-1.3) Eosinophils # (Auto) 0.2 10 ^3/uL (0-0.8) Basophils # (Auto) 0.1 10 ^3/uL (0-0.2) Nucleated Red Blood Cells 0.0 % Total Bilirubin 1.1 mg/dL (0.2-1.0) Aspartate Amino Transferase (AST) 24 U/L (13-40) Alanine Aminotransferase (ALT) 23 U/L (7-40) Alkaline Phosphatase 100 U/L (46-116) Troponin I High Sensitivity < 3 ng/L (</=34) B-Type Natriuretic Peptide 105.61 pg/mL (0-100) Total Protein 6.6 g/dL (5.7-8.2) Albumin 4.2 g/dL (3.2-4.8) Other Laboratory Tests 03/17/25 04:38 03/16/25 04:37 Brief Hx & Hospital Course: 69-year-old female who came to ER for bilateral leg swelling. Patient states about 3 months ago she had the procedure to repair leaking venous valves at her left lower leg. The past few weeks however noted swelling and pain on both lower legs again, more painful in the right leg. Pain appears to be get worse with walking. She is admitted and received IV diuresis and diuresed well. Her leg swelling has significantly improved. Her pain has also significantly improved. Arterial Dopplers of her legs as well as venous Dopplers did not show any acute significant pathology. Patient has normal circulation. Patient is counseled and educated regarding diet exercise and weight loss given her obesity with the varicose veins. Patient is otherwise advised to wear [id number] Marino hoses thigh-high during daytime and take him off at nighttime. Otherwise given patient is clinically stable feeling better she has been discharged home in stable condition. Patient is prescribed diuretic with the Aldactone and advised to continue her atenolol. She is to follow up with her PCP and further manage her symptoms as deemed appropriate. Patient verbalized understanding over hospital diagnosis, treatment she received, discharge medications, discharge instructions and agree with follow-up plan of care as outlined. Operations or Procedures APPROVED REPORT EXAM: Two-dimensional and M-mode echocardiogram with Doppler and color Doppler. Blood Pressure: 156/101 mmHg INDICATION CHF? RISK FACTORS Obesity: Height: 5'3", Weight: 213 DIMENSIONS LVDd 4.3 (3.8-5.7cm) LA (2D) 3.4 (1.9-4.0cm) Aortic Root 3.3 (2.0- 3.7cm) LVDs 2.9 (2.5-4.0cm) LA (MM) (1.9-4.0cm) Aortic Cusp Exc 1.4 (1.5- 2.0cm) EF (%) 60.0 (55-70%) Rt. Atrium 3.6 (1.9-4.0cm) Asc. Aorta cm IVSd 0.8 (0.7-1.1cm) RV (D) (1.8-2.4cm) PWd 0.9 (0.7-1.1cm) Mitral Valve Mitral Mitral Stenosis E wave 0.99m/s MV Mean GR. mmHg A wave 1.16m/s MV Peak GR. mmHg E/A ratio 0.9 2D MVA cm2 DECEL Time 183ms PRESS 1/2 Time ms Aortic Valve Aortic Valve Aortic Stenosis V1 1.14m/s AO Mean GR. 4mmHg V2 1.51m/s AO Peak GR. 9mmHg LVOT Diameter 1.8 (1.8-2.4cm) Doppler JAYLIN 1.92cm2 Pulmonic Valve V2 1.03m/s Tricuspid Valve TR Velocity 3.01m/s RVSP 39mmHg Other Information Quality : Limited Rhythm : Technically limited study due to body habitus, patient laying flat. Conclusion LV EF IS 65% AND IS NORMAL MILD LVH AND MILD LV DIASTOLIC DYSFUNCTION NORMAL VALVES NO EFFUSION NORMAL RV FUNCTION MILD PULMONARY HYPERTENSION RVSP IS 39 MM OF HG AND IS BORDERLINE HIGH SIGNED BY: SUMAYA MCCLURE MD SIGNED DATE/TIME: 03/16/25 7116 Condition at Discharge: Stable Final Diagnosis/Problems List BLE swelling, htn, hypothyroidism, varicose veins Discharge Disposition: Home Discharge Instruct/Medications Diet: Consistent carbohydrate, Cardiac 2g Na,low cholest Activity: No Restrictions, As Tolerated Follow Up/Referral: PCP next week for leg swelling follow up. Medications: take medications as prescribed and home meds Scheduled Atenolol (Atenolol), 25 MG PO DAILY, (Reported) Levothyroxine Sodium (Levothyroxine Sodium), 100 MCG PO QAM, (Reported) Spironolactone (Aldactone), 1 TAB PO DAILY Miscellaneous Medications Oxycodone HCl (Oxycodone Hydrochloride), 10 MG PO, (Reported) Durable Medical Equipment Elastic Bandages & Supports (Anti-Embolism Stockings 1), UNIT XX DAILY, (DME) Elastic Bandages & Supports (Futuro Sheer Support Hose), UNITS XX DAILY, (DME) Discharge Statement: "Patient was advised to return to the ER or call 911 if any headaches, dizziness, shortness of breath, chest pain, abdominal pain, bleeding, fevers, or worsening of medical condition. Patient was counseled about treatment plan, medications, possible side effects, patientverbalized understanding. All questions were answered to the best of my ability. This discharge took greater then 30 minutes in planning, reviewing documentation, counseling the patient, and discussing with other team members." ASSESSMENT ASSESSMENT Assessment BLE swelling, htn, hypothyroidism, varicose veins JOYCELYN TOWNSEND MD Mar 17, 2025 13:36
[2025-03-17 14:48] VITALS: BP 120/58; PULSE 71; RESP 16; TEMP 98.2; O2SAT 93
== END 2025-03-17 15:38 | disposition home or self-care (01) | DRG 291 ==
LOC: ER 04:03 → OVERFLOW 10:49
PROVIDERS: ADMIT Hospitalist; ATTEND Hospitalist
DX: I11.0 Hypertensive heart disease with heart failure (principal); I50.33 Acute on chronic diastolic (congestive) heart failure; E03.9 Hypothyroidism, unspecified; E66.9 Obesity, unspecified; I83.93 Asymptomatic varicose veins of bilateral lower extremities; Z88.0 Allergy status to penicillin; Z82.49 Family history of ischemic heart disease and other diseases of the circulatory system; Z68.35 Body mass index [BMI] 35.0-35.9, adult; Z79.899 Other long term (current) drug therapy
CPT/HCPCS: 36415; 71045; 80048; 80053; 83880; 84484; 85025; 93306; 93925; 93970; 96374; G0378